=== PATIENT | female | born 1965 | race Caucasian/White ===

== ENCOUNTER → 2025-01-23 07:29 | Outpatient (REF) | payer BC, SELFPAY ==
[2025-01-23 08:25] LABS: Hematocrit 35.9 % (37.0-47.0); Hemoglobin 10.9 g/dL (12.0-16.0); Mean Corp Hgb Conc. 30.4 g/dL (33.0-37.0); Mean Corpuscular Hgb 19.5 pg (27.0-31.0); Mean Corpuscular Volume 64.2 fL (81.0-99.0); Mean Platelet Volume 10.6 fL (7.4-10.4); Platelet Count 224 10^3/uL (130-400); Red Blood Cell Count 5.59 10^6/uL (4.20-5.40); Red Cell Dist. Width 16.3 % (11.5-14.5); White Blood Cell Count 2.7 10^3/uL (4.8-10.8)
[2025-01-23 09:11] LABS: ALT (SGPT) 32 U/L (0-35); AST (SGOT) 36 U/L (14-36); Albumin 4.9 g/dl (3.5-5.0); Alkaline Phosphatase 54 U/L (38-126); Blood Urea Nitrogen 15 mg/dl (7-17); C-Reactive Protein < 5.00 mg/L (0.0-10.00); Calcium 9.7 mg/dl (8.4-10.2); Carbon Dioxide 27 mmol/L (22-30); Chloride 106 mmol/L (98-107); Glucose 74 mg/dl (70-99); Potassium 4.2 mmol/L (3.5-5.1); Sodium 142 mmol/L (135-145); Total Bilirubin 1.7 mg/dl (0.2-1.3); eGFR > 60.00
[2025-01-23 14:03] LABS: % Basophils 1.9 % (0-2); % Eosinophils 11.7 % (0-6); % Lymphocytes 33.6 % (20.5-51.1); % Monocytes 15.5 % (1.7-9.3); % Neutrophils 37.3 % (42.2-75.2); Absolute Basophils 0.1 10^3/uL (0-0.2); Absolute Eosinophils 0.3 10^3/uL (0-0.7); Absolute Lymphocytes 0.9 10^3/uL (1.2-3.4); Absolute Monocytes 0.4 10^3/uL (0.1-0.6); Nucleated Red Blood Cells % 0 %
== END ==
LOC: REG 07:29
PROVIDERS: ATTENDING PHYSICIAN Internal Medicine Rheumatology; FAMILY PHYSICIAN Physician Assistant
DX: M06.09 Rheumatoid arthritis without rheumatoid factor, multiple sites (principal)
CPT/HCPCS: 36415; 80053; 85025; 86140

== ENCOUNTER 2025-03-07 08:37 | Inpatient (IN) | payer BC, SELFPAY ==
[2025-03-07] VITALS (19 sets, daily range): BP systolic 74–138; BP diastolic 42–77
--- NOTE | 2025-03-07 05:13 | ED.GENMED ---
History of Present Illness
General
Chief Complaint: Abdominal Pain
Source: patient
Time Seen by Provider: 03/07/25 05:02
History of Present Illness
History of Present Illness:
This patient is a 60-year-old female presents emergency department with complaints of pain in the epigastric area that started approximately 1 AM and continues. The pain is constant, but then sometimes will unpredictably get worse. She denies
associated lower abdominal pain, chest pain, back pain. She says it 'comes in waves'. She took a PPI and Pepto without relief of symptoms. She denies dyspnea or vomiting but does have mild nausea. She denies fever, chills. She was perfectly
well before this started and describes a day where she was in the pool with her grandchildren.
Past History
Past History
ED Past Medical History: Other (RA, thalassemia minor, hypertension)
ED Past Surgical History: Appendectomy, Gynecological and Orthopedic
Social History
Tobacco: Non-smoker
Drug: None
Personal:
Living: with family
Employment: Employed
Phy Exam
Physical Exam
Physical Exam:
GENERAL: Alert , appears mildly uncomfortable
EYE: pupils equal and reactive
NECK: Supple, no significant adenopathy.
ENT: o/p clr, mmm.
CARDIAC: Regular rate and rhythm .
LUNGS: Clear breath sounds bilaterally, no acute respiratory distress, no wheezes/rales/rhonchi
ABDOMEN: Soft, diffuse abdominal tenderness, no r/g, no cvat
NEUROLOGICAL: Alert and oriented, no focal neuro deficits
SKIN: Warm and dry, skin intact.
MUSCULOSKELETAL: No edema, well perfused.
PSYCH: Normal and appropriate interaction.
Course
Orders/Labs/Results
Orders:
Orders
03/07/25 04:58
Electrocardiogram (*1) Urgent
Reason for Study: Chest Pain
Cardiac Monitoring- Treatment ONCE
EKG- Treatment ONCE
IV Insert/Care/Rem.- Treatment PRN
Pulse Ox/spot Check [RESP] Stat
Quantity: 1
03/07/25 05:02
Complete Blood Count/With Diff Urgent
Comprehensive Metabolic Panel Urgent
Lactate Level [Lactic Acid] Urgent
Lipase Urgent
Troponin I Urgent
03/07/25 05:10
Type And Crossmatch [Type+Screen] Urgent
03/07/25 05:12
Chest/Abd Angio w/wo Contrast CT [CT Chest/abd Angio W/wo Iv Con] Urgent
Comment:
Reason For Exam: EPIGASTRIC PAIN
03/07/25 06:04
0.9% Sodium Chloride 1000 ml [Nss] 1,000 ml IV BOLUS
Morphine Sulfate 4 mg IV NOW STA
03/07/25 06:35
0.9% Sodium Chloride 500 ml [Nss] 500 ml IV BOLUS
HYDROmorphone [Dilaudid] 0.5 mg IV NOW STA
03/07/25 07:28
ABO2 Urgent
BBK Wristband Number:
Associate notified that ABO2 has been ordered: [id number]
Date: 03/07/25
Time: 05:30
Stores Naval ID: [id number]
03/07/25 08:11
Morphine Sulfate 4 mg IV NOW STA
03/07/25 08:13
Admit/Transfer Patient As Directed
Co-Sign Provider:
Level of Care: Inpatient admission
Assign to:: Medical/Surgical
Physician / Group: Rome Blanco
Diagnosis: Abd pain, SB inflammation
Reason for Hospitalization: Abd pain, SB inflammation
Expected length of stay greater than two midnights?: Yes
ELOS- Estimated Length of Stay in days: 3
I certify the patient meets the requirements for IP care: Yes
PRN Pain Medication Management As Directed
May give lesser potent ordered pain med per pt: Yes
preference::
Protocol:: Medication orders for pain may be administered in a
manner that supports deferring to patient preference
when the pt is:
- Requesting an ordered lesser potent pain medication.
Least to most potent pain medications are defined
as: acetaminophen < NSAID < tramadol < opioids
(morphine, oxycodone, hydromorphone).
- Requesting a lesser dose of the same medication IF
ORDERED.
- Requesting a less intrusive route of administration
if both routes are prescribed by the provider (PO <
IV).
03/07/25 08:15
Code Status As Directed
Resuscitation Status: Full Code
03/07/25 08:18
HYDROmorphone [Dilaudid] 0.5 mg IV NOW STA
03/07/25 09:34
0.9% Sodium Chloride 1000 ml [Nss] 1,000 ml IV 100 mls/hr
Acetaminophen [Tylenol] 650 mg PO Q4HPRN PRN
Bisacodyl [Dulcolax] 10 mg RECTAL [id number] PRN
Docusate W/Senna [Senokot-S] 1 tablet PO BIDPRN PRN
HYDROmorphone [Dilaudid] 0.5 mg IV Q4HPRN PRN
Ondansetron Injectable [Zofran] 4 mg IV Q6HPRN PRN
Oxycodone [Roxicodone] 5 mg PO Q4HPRN PRN
Polyethylene Glycol Powder [Miralax] 17 grams PO DAILYPRN PRN
03/07/25 09:34
Activity As Directed
Activity Level: With Assistance
Vital Signs As Directed
Frequency: Per unit guidelines
DX Deep Vein Thrombosis Video Routine
03/07/25 10:00
Ampicillin/Sulbactam 3 G [Unasyn] 3 gm 0.9% Sodium Chloride 100 ml [Nss] 100 ml IV Q6H
03/07/25 18:00
Enoxaparin Sodium [Lovenox] 40 mg SC QPM
03/08/25 08:31
Basic Metabolic Panel IN AM
Complete Blood Count/No Diff IN AM
Abnormal Lab Results
03/07/25
05:02
Hgb 10.4 L g/dL
(12.0-16.0)
Hct 32.7 L %
(37.0-47.0)
MCV 63.0 L fL
(81.0-99.0)
MCH 20.0 L pg
(27.0-31.0)
MCHC 31.8 L g/dL
(33.0-37.0)
RDW 16.0 H %
(11.5-14.5)
Absolute Lymphs (auto) 0.6 L 10^3/uL
(1.2-3.4)
Immature Gran % 0.6 H %
(0-0.5)
Neutrophils % 79.0 H %
(42.2-75.2)
Lymphocytes % 8.6 L %
(20.5-51.1)
Chloride 110 H mmol/L
(98-107)
BUN 24 H mg/dl
(7-17)
Glucose 138 H mg/dl
(70-99)
Total Bilirubin 2.9 H mg/dl
(0.2-1.3)
03/07/25 05:02
03/07/25 05:02
Vital Signs
Initial and Last Documented VS:
Initial Vital Signs
Temp Pulse Resp BP Pulse Ox
97.3 F 68 24 77/42 100
03/07/25 04:28 03/07/25 04:28 03/07/25 04:28 03/07/25 04:28 03/07/25 04:28
Last Documented Vital Signs
Temp Pulse Resp BP Pulse Ox
97.4 F 61 18 155/78 96
03/08/25 15:04 03/08/25 15:04 03/08/25 15:04 03/08/25 15:04 03/08/25 15:04
*Critical Care Note
Total Time (30-74mins, 75-104mins- exclusive of procedures): Not Applicable
Update Note
Update Note:
Patient presents to the Emergency Department with __abdominal pain
Number and Complexity of Problems Addressed at the Encounter
� Chronic conditions affecting care:
� Acute Exacerbation and/or Progression of Chronic Illness:
� Differential Diagnosis includes: But not limited to bowel/gastric perforation, aortic dissection, cholecystitis, etc. etc.
Amount and/or Complexity of Data to be Reviewed and Analyzed
� I performed an independent evaluation of and my interpretation is:
EKG:
CT: Read by vision no aortic dissection or aneurysm, no PE, mild cardiomegaly no pneumothorax or pleural effusion patchy opacities could reflect edema or infection nonspecific prevascular lymph node no cholecystitis pancreatitis
hepatic steatosis spleen mildly enlarged adrenal glands normal no obstructing renal stone inflamed and slightly day loops of small bowel in the left hemiabdomen suspicious for obstruction or ileus correlate with lack dated serial abdominal exams to
assess for ischemia
Xrays:
Laboratory Studies:anemia baseline, mild prerenal azotemia, nonspecific hyperbilirubinemia normal lipase, normal lactic acid
Other:
� Review of other/old records reveals:
� Clinical information was obtained by an independent historian:
� Prescriptions/Medications Considered but not given:
� Further testing considered but not performed:
Risk of Complications and/or Morbidity or Mortality of Patient Management
� Social determinants of health affecting care:
� Discussion with other providers (PCP, Hospitalists, Consultants, etc):
� Escalation of care including admission/observation vs risk of discharge considered: Patient noted to be hypotensive, IVs promptly placed, fluid resuscitation started.
Multiple reassessments of patient. She has been updated on her testing. Incidentally, she does report that she recently increased her Zepbound dosing as of , this could be contributing to her symptoms. At this time, I think ischemic bowel
is extremely unlikely given normal lactic acid, findings that are more likely to be consistent with ileus obstruction, etc. Blood pressure has improved we will continue to monitor closely, IV fluids running.
719am bp stable. Case d/w hospitalist for admission via tt.
ED Attending Note
-
Portions of this chart may have been created with voice recognition software.� Occasional wrong word or��sound alike� substitutions may have occurred due to the inherent limitations of voice recognition software.
Discharge Plan
Departure
Patient Disposition: Admit
Date of Disposition: 03/07/25
Time of Disposition: 07:19
Admit to: Telemetry
Presentation/result/management discussed w/ accepting MD/DO: Hospitalist
Condition: Fair
Discharge Problem:
Abdominal pain
Interventions
Interventions:
*General Assessment Last Done: 03/07/25 05:05
*Neglect/Abuse Screening Last Done: 03/07/25 04:28
*ED- Fall Risk Assessment Last Done: 03/07/25 05:11
*Nursing Disposition Last Done: 03/07/25 09:37
CL-Mhlvks-Cquzaclfmt Assessment Last Done: 03/07/25 05:47
Discharge Date and Time
Discharge Date/Time: 03/07/25 09:38
[2025-03-07 05:24] LABS: ALT (SGPT) 25 U/L (0-35); AST (SGOT) 28 U/L (14-36); Albumin 4.8 g/dl (3.5-5.0); Alkaline Phosphatase 39 U/L (38-126); Blood Urea Nitrogen 24 mg/dl (7-17); Calcium 9.7 mg/dl (8.4-10.2); Carbon Dioxide 25 mmol/L (22-30); Chloride 110 mmol/L (98-107); Glucose 138 mg/dl (70-99); Lipase 70 U/L (23-300); Sodium 143 mmol/L (135-145); Total Bilirubin 2.9 mg/dl (0.2-1.3); Total Protein 7.2 g/dl (6.3-8.2); eGFR > 60.00
[2025-03-07 05:29] LABS: Lactic Acid 1.9 mmol/L (0.7-2.0)
[2025-03-07] MEDS: NSS 1000 IV ×3 (05:30→21:20)
[2025-03-07 05:37] LABS: % Basophils 1.2 % (0-2); % Eosinophils 4.8 % (0-6); % Immature Granulocytes 0.6 % (0-0.5); % Lymphocytes 8.6 % (20.5-51.1); % Monocytes 5.8 % (1.7-9.3); Absolute Basophils 0.1 10^3/uL (0-0.2); Absolute Eosinophils 0.3 10^3/uL (0-0.7); Absolute Lymphocytes 0.6 10^3/uL (1.2-3.4); Absolute Monocytes 0.4 10^3/uL (0.1-0.6); Absolute Neutrophils 5.3 10^3/uL (1.4-6.5); Hematocrit 32.7 % (37.0-47.0); Hemoglobin 10.4 g/dL (12.0-16.0); Mean Corp Hgb Conc. 31.8 g/dL (33.0-37.0); Nucleated Red Blood Cells % 0 %; Platelet Count 207 10^3/uL (130-400); Red Blood Cell Count 5.19 10^6/uL (4.20-5.40); White Blood Cell Count 6.7 10^3/uL (4.8-10.8)
[2025-03-07 05:43] LABS: Troponin I 0.013 ng/ml
[2025-03-07] MEDS: MORPHINE SULFATE 4 MG IV (06:18)
[2025-03-07] MEDS: NSS 500 IV (06:39)
[2025-03-07] MEDS: DILAUDID 0.5 MG IV ×4 (06:40→21:21)
--- NOTE | 2025-03-07 08:40 | HPS.HSE ---
Family Physician
-
Family Physician: Sherrie Tamez PA-C
Chief Complaint
-
Abdominal pain
History of Present Illness
Patient is 60-year-old female with past medical history of depression/anxiety, rheumatoid arthritis on Plaquenil, cervical degenerative joint disease and neuropathy, essential hypertension, obesity came to ER with acute onset of left flank and
epigastric pain that started in the night all of a sudden. Pain is somewhat constant in nature and comes in waves. Unable to specify if there is any radiation, no associated diarrhea/nausea/vomiting/fever episode. Patient denies of having any
previous episodes of such similar pain/peptic ulcer disease/gastritis/pancreatitis. Patient still remain in discomfort and Dilaudid has taken some edge off. Patient denies any other associated issues of chest pain/shortness of breath/productive
cough/headache/dizziness.
Medical History
Past Medical History
Past Medical History: Reports Other
Additional Past Medical History:
depression/anxiety, rheumatoid arthritis on Plaquenil, cervical degenerative joint disease and neuropathy, essential hypertension, obesity
Past Surgical History: Reports Other
Social History
Tobacco: Non-smoker
Alcohol: Occasional
Drug: None
Living: With Family
Family History
Family History: Not pertinent
Allergies / Home Medications
Allergies reflects when Allergies were last updated in [employer].
Home Medications with original date entered in [employer]
Allergy/Medication List:
Allergies
Allergy/AdvReac Type Severity Reaction Status Date / Time
latex [Latex] Allergy Unknown Verified 03/07/25 04:32
Home Medications
amitriptyline 50 mg tablet 50 mg PO HS 08/10/08
calcium 600 mg (as carbonate)-vitamin D3 5 mcg (200 unit) tablet 1 tab PO DAILY 08/10/08
diazepam 10 mg tablet (Valium) 10 mg PO TID PRN spasms 08/10/08
duloxetine 60 mg capsule,delayed release 60 mg PO HS 08/10/08
morphine 60 mg capsule,extended release 24 hr multiphase (Avinza) 60 mg PO DAILY 08/10/08
oxycodone 5 mg tablet 10 mg PO PRN pain 08/10/08
pregabalin 150 mg capsule (Lyrica) 150 mg PO TID 08/10/08
valsartan 80 mg-hydrochlorothiazide 12.5 mg tablet (Diovan HCT) 1 tab PO DAILY 08/10/08
Review of Systems
-
A 12 point ROS was completed and negative except as noted: Yes
Physical Exam
Vital Signs
Vital Signs
Temp Pulse Resp BP Pulse Ox
97.3 F 69 18 104/51 96
03/07/25 04:28 03/07/25 07:15 03/07/25 06:15 03/07/25 07:15 03/07/25 07:15
Physical Exam
General: No Apparent Distress
HEENT: No Oxygen
Respiratory: Clear
Cardiac: S1/S2 and Regular Rhythm; No Murmur or Rub
GI: Soft, Non Distended, Normal Bowel Sounds and Tender (LUQ/Left flank); No Organomegaly
Rectal: Deferred by Provider
Musculoskeletal: No Clubbing, No Cyanosis and No Edema
Skin: No Rash
Neuro: Nonfocal/grossly intact
Laboratory Results
-
03/07/25 05:02
03/07/25 05:02
Laboratory Results
Lactic Acid 1.9 mmol/L (0.7-2.0) 03/07/25 05:02
Total Bilirubin 2.9 mg/dl (0.2-1.3) H 03/07/25 05:02
AST 28 U/L (14-36) 03/07/25 05:02
ALT 25 U/L (0-35) 03/07/25 05:02
Alkaline Phosphatase 39 U/L (38-126) 03/07/25 05:02
Troponin I 0.013 ng/ml 05/18/25 05:02
Lipase 70 U/L (23-300) 03/07/25 05:02
Impression/Plan
-
CT abdomen pelvis preliminary report by night ad hoc Radiologist:
CTA chest: No definitive aortic dissection or aneurysm. No pulmonary embolism. Mild cardiomegaly. Dependent atelectasis. No pneumothorax or pleural effusion. Patchy opacities could reflect edema or reflection. Nonspecific prevascular lymph
node on series 504, image 113 measuring 2.4 x 1.5 cm without recent imaging for comparison
CT abdomen: No aortic dissection or aneurysm no cholecystitis or pancreatitis. Hepatic steatosis. Spleen mildly enlarged. Adrenal glands normal. No obstructing renal stone. Inflamed and slightly dilated loops of small bowel in the left
hemiabdomen suspicious for obstruction or ileus.
1. Intractable abdominal pain
Small bowel inflammation
- Patient have acute onset of left epigastric abdominal pain without any associated nausea/vomiting/diarrhea/fever
- Denies previous history of peptic ulcer disease/pancreatitis/gastritis
- Significant tenderness on exam
- No WBC/lipase negative
- CT abdomen pelvis showing small segment of small bowel inflammation.
- Will have general surgery follow, clinically not behaving ileus or obstruction
- Bowel ischemia remains in differential. Lactic acid first check was normal, check every 8 hour for any increase
- Maintain on clear liquid diet/IV fluid
- Cover with empiric IV Unasyn
2. Rheumatoid arthritis
- Patient takes Plaquenil 200 mg at night, will hold for 24-48 hrs till infection concern cleared
3. Degenerative joint disease of spine
Cervical neuropathy
- Maintain gabapentin 300 mg at night
- Patient also take Zanaflex 2 mg as needed, but blood pressure soft unable to provide
4. Essential hypertension
Hypotension
- Hold valsartan for time being as patient cerebral pressure in 100s only
DVT PPX - lovenox
Full code
Full med reconciliation is pending
[2025-03-07] MEDS: UNASYN IV ×3 (10:19→21:20)
[2025-03-07] MEDS: NSS (PRESERVATIVE FREE) 10 ML IV (11:00)
[2025-03-07] MEDS: PROTONIX IV 40 MG IV (11:00)
--- NOTE | 2025-03-07 15:00 | CON.GS ---
Addendum entered and electronically signed by Michael Nelson MD 03/07/25 15:36:
Patient seen and examined.
Patient is a 60 yo F with a PMH RA (on Kevzara and HCQ), HTN, thalassemia, , endometriosis with multiple laparoscopies and eventual JENNIFER/BSO, obesity on Zepbound for weight loss with dosage increased on from 2.5 mg to 5 mg weekly
who presents with abdominal pain predominantly to the epigastrium with mild nausea which began around 1 am. She passed a normal BM yesterday but no stools today. She has been passing flatus. She reports some mild nausea earlier but no vomiting.
Generalized abdominal tenderness on exam which is worse to the epigastrium without distention. Recent trial of Mobic for 2 weeks, but stopped 1 week ago. No steroids. She previously was on a PPI for GERD, but does not take anything consistently.
Gen: NAD
Abd: soft, tender predominantly in epigastrium, mild in LUQ, ND, non-peritoneal
Labs and CT scan were reviewed
Ms. Hall is a 60 yo F with a h/o RA and obesity on Zepbound who presents with epigastric and LUQ abdominal pain.
Uncertain exact cause for symptoms. Differential includes gastritis or ulcer disease versus medication complication from Zepbound, less likely an adhesive SBO. No plans or indication for surgical intervention at this time. Recommend medical
management with bowel rest, antibiotics, and antacid therapy. If symptoms do not improve would repeat CT scan imaging of the abdomen and pelvis with PO contrast and consider engaging GI for possible EGD. All questions answered.
--OK for clear liquids
--If no symptomatic improvement in the next 24 hours, would repeat CT scan imaging with PO contrast and consider GI consult
--On Unasyn empirically to prevent translocation
--Analgesics/antiemetics prn
--Management as per primary team. No plans for surgery.
--Will follow peripherally, call with questions or concerns
Original Note:
Consultation
-
Date/Time Consultation Performed: 03/07/25 3857
Medical History
-
Chief Complaint: abdominal pain
History of Present Illness:
Ms Hall is a 60 yo female with a h/o RA on Kevzara and HCQ, HTN, thalassemia, , endometriosis with multiple laparoscopies and eventual JENNIFER/BSO, obesity on Zepbound for weight loss with dosage increased on from 2.5mg to 5mg
weekly who presents with abdominal pain predominantly to the epigastrium with mild nausea which began around 1 am. She passed a normal BM yesterday but no stools today. She has been passing flatus. She reports some mild nausea earlier but no
vomiting. Generalized abdominal tenderness on exam which is worse to the epigastrium without distention.
Past Medical History
Past Medical History: GERD (recent tx with omeprazole), HTN, Valvular Disease (MV prolapse) and Other (RA on kevzara and hcq and recent course of meloxicam, thalassemia minor, obesity on zepbound)
Past Surgical History: Appendectomy, , Gynecological (multiple laparoscopic procedures for endometriosis with eventual hysterectomy/BSO) and Orthopedic (t8 discectomy )
Social History
Tobacco: Non-Smoker
Alcohol: Occasional
Living: With Family
Employment: Employed ([employer])
Family History
Family History: Reviewed & Not Pertinent
Allergies / Home Medications
Allergy/AdvReac Type Severity Reaction Status Date / Time
latex [Latex] Allergy Unknown Verified 03/07/25 04:32
�Medication �Instructions �Recorded �Confirmed �Type
amitriptyline 50 mg tablet 50 mg PO HS 08/10/08 08/10/08 History
calcium 600 mg (as 1 tab PO DAILY 08/10/08 08/10/08 History
carbonate)-vitamin D3 5 mcg (200
unit) tablet
diazepam 10 mg tablet (Valium) 10 mg PO TID PRN spasms 08/10/08 08/10/08 History
duloxetine 60 mg capsule,delayed 60 mg PO HS 08/10/08 08/10/08 History
release
morphine 60 mg capsule,extended 60 mg PO DAILY 08/10/08 08/10/08 History
release 24 hr multiphase (Avinza)
oxycodone 5 mg tablet 10 mg PO PRN pain 08/10/08 08/10/08 History
pregabalin 150 mg capsule (Lyrica) 150 mg PO TID 08/10/08 08/10/08 History
valsartan 80 1 tab PO DAILY 08/10/08 08/10/08 History
mg-hydrochlorothiazide 12.5 mg
tablet (Diovan HCT)
Review of Systems
-
History Source: Patient
All other systems: Negative unless noted
A 10 point review of systems was completed, and was negative except as per HPI.
Physical Exam
Vital Signs
Temp Pulse Resp BP Pulse Ox
98.2 F 66 18 138/77 99
03/07/25 09:40 03/07/25 09:40 03/07/25 09:40 03/07/25 09:40 03/07/25 09:40
03/06/25 03/07/25 03/08/25
06:59 06:59 06:59
Actual Weight 73 kg 73.074 kg
Lab Results
03/07/25 05:02
03/07/25 05:02
WBC 6.7 10^3/uL (4.8-10.8) 03/07/25 05:02
Hgb 10.4 g/dL (12.0-16.0) L 03/07/25 05:02
Hct 32.7 % (37.0-47.0) L 03/07/25 05:02
Plt Count 207 10^3/uL (130-400) 03/07/25 05:02
Abs Immat Gran (auto) 0.0 10^3/uL (0-0.05) 03/07/25 05:02
Neutrophils % 79.0 % (42.2-75.2) H 03/07/25 05:02
Physical Exam
General: Well Developed and Well Nourished
HEENT: Moist Mucous Membranes
Respiratory: Non Labored Respirations
GI: Soft, Non Distended and Tender (throughout but more focally tender to the epigastrium)
Skin: Warm and Dry
Neuro: Awake, Alert and AO x 3
Psych: Calm
Data Reviewed
-
CT Scan: Image Personally Visualized and interpreted, Report Reviewed by me, Discussed with Physician and Discussed with Patient
Labs: Labs Reviewed by me, Discussed with Physician and Discussed with Patient
Old Records: Reviewed
Assessment / Plan
-
Ms Hall is a 60 yo female with a h/o RA on Kevzara and hcq, HTN, thalassemia minor, , endometriosis with multiple laparoscopies and eventual JENNIFER/BSO, obesity on Zepbound for weight loss with dosage increased on from 2.5mg to 5mg
weekly who presents with abdominal pain predominantly to the epigastrium with mild nausea which began around 1 am. CTA reviewed and demonstrating mildly dilated loops of proximal small bowel with thickening. Unclear if symptoms related to recent
increase in Zepbound dosing vs gastroenteritis/PUD, less likely an adhesive sbo. She has been passing flatus but no BM today. Minimal nausea. No leukocytosis. Afebrile, VSS.
--Ok for clear liquids
--If no symptomatic improvement in the next 24 hours, consider GI consult
--On Unasyn empirically to prevent translocation
--Analgesics/antiemetics prn
--Management as per primary team. No plans for surgery.
[2025-03-07 16:04] LABS: Lactic Acid 0.8 mmol/L (0.7-2.0)
[2025-03-07] MEDS: LOVENOX 40 MG SC (17:16)
[2025-03-08] MEDS: UNASYN IV ×2 (04:24→09:12)
[2025-03-08] MEDS: NSS 1000 IV (06:35)
[2025-03-08 07:24] VITALS: BP 130/69
[2025-03-08] MEDS: PROTONIX IV 40 MG IV (08:00)
[2025-03-08] MEDS: NSS (PRESERVATIVE FREE) 10 ML IV (08:00)
--- NOTE | 2025-03-08 08:42 | W.PN.HOSP.TC ---
Addendum entered and electronically signed by Joesph Petersen MD 03/08/25 18:49:
Ok to d/c as long as tolerates diet.
Original Note:
Today's Communication/Plan
-
CLD. PPI. GI eval
Assessment / Plan
Assessment / Plan
Physical exam:
General: Well Developed, Well Nourished and some apparent Distress
HEENT: Normocephalic, Atraumatic and Moist Mucous Membranes
Respiratory: Clear to Auscultation; Negative Wheezes, Rales or Rhonchi
Cardiac: Regular Rhythm and S1/S2
GI: Soft, tender and Nondistended
Musculoskeletal: No Clubbing, No Cyanosis and No Edema
Neuro: Awake, Alert and Oriented, no neurological deficit
Psych: Calm
A/P:
1. Abdominal pain
Suspect etiology could be related to Zepbound versus PUD/gastritis in the setting of NSAID use recently vs enterocolitis
Continue PPI
Continue clear liquid diet
GI consult-discussed with GI via [place] text today
Appreciate surgery input-no need for surgical intervention
Stop antibiotics today
Stop IV fluids today
2. Rheumatoid arthritis
- Patient takes Plaquenil-resume home medications today
3. Degenerative joint disease of spine
Cervical neuropathy
- Maintain gabapentin 300 mg at night-will resume tonight
- Patient also take Zanaflex 2 mg as needed
4. Essential hypertension-blood pressure much improved today
- Resume valsartan but half the dose 80 mg daily and HCTZ 25 mg daily with holding parameter
5. Hypotension
- Initially HTN meds have been on hold and IV fluids given
DVT PPX - lovenox
Full code
Total time spent on today's encounter was 52 minutes which included time spent in counseling the patient/family regarding diagnosis and treatment plan as listed above, goals of care, and symptom management. Case was discussed with nursing staff,
specialists, and care coordinators/case management. All labs and imaging personally reviewed by me. Remainder the time spent in detailed review of previous records, lab data, imaging, and other medical provider documentation.
Anticipated Discharge: 24 - 48 hours
Subjective/Interval History
-
Date of Service: March 08, 2025
Patient complains of abdominal pain today after having clear liquid diet. No vomiting. Afebrile
Objective Data
-
Labs:
Laboratory Results
03/08/25
08:31
WBC Pending
Hgb Pending
Hct Pending
Plt Count Pending
Sodium Pending
Potassium Pending
Chloride Pending
Carbon Dioxide Pending
BUN Pending
Creatinine Pending
Glucose Pending
Calcium Pending
Vital Signs:
Vital Signs
Temp Pulse Resp BP Pulse Ox
98.0 F 58 18 130/69 98
03/08/25 07:24 03/08/25 07:24 03/08/25 07:24 03/08/25 07:24 03/08/25 07:24
I&O
03/07/25 03/08/25 03/09/25
06:59 06:59 06:59
Intake Total 3200 / 3200
Balance 3200 / 3200
[2025-03-08 08:55] LABS: Hematocrit 34.1 % (37.0-47.0); Hemoglobin 10.6 g/dL (12.0-16.0); Mean Corp Hgb Conc. 31.1 g/dL (33.0-37.0); Mean Corpuscular Hgb 20.1 pg (27.0-31.0); Mean Corpuscular Volume 64.6 fL (81.0-99.0); Platelet Count 190 10^3/uL (130-400); Red Blood Cell Count 5.28 10^6/uL (4.20-5.40); Red Cell Dist. Width 16.5 % (11.5-14.5); White Blood Cell Count 2.7 10^3/uL (4.8-10.8)
[2025-03-08 09:01] LABS: Blood Urea Nitrogen 10 mg/dl (7-17); Calcium 8.9 mg/dl (8.4-10.2); Carbon Dioxide 23 mmol/L (22-30); Chloride 116 mmol/L (98-107); Glucose 84 mg/dl (70-99); Sodium 145 mmol/L (135-145); eGFR > 60.00
[2025-03-08] MEDS: DILAUDID 0.5 MG IV (09:09)
[2025-03-08] MEDS: ORETIC 25 MG PO (12:37)
[2025-03-08] MEDS: DIOVAN 80 MG PO (12:38)
[2025-03-08] MEDS: PLAQUENIL 400 MG PO (12:38)
--- NOTE | 2025-03-08 14:57 | CM ---
seo manager reviewed patient's chart and met with patient and patient lives with spouse in a 2 story home, patient is independent with adl's and ambulation, no dme, patient drives, home when stable, no needs.
PCP: Sherrie Fry
Pharmacy: [facility] in [place].
[2025-03-08 15:04] VITALS: BP 155/78
--- NOTE | 2025-03-08 16:11 | CON.GI ---
Addendum entered and electronically signed by Angel Lopez MD 03/08/25 18:27:
I saw and examined the patient.
The PA's note was reviewed and I agree with the note.
Comment:
60-year-old female with h/o RA, HTN, obesity on Zepbound, and fatty liver who presents with sudden onset of severe epigastric abdominal pain. She recently had her GLP-1 agonist (Zepbound) dose increased from 2.5 mg to 5 mg, last taken on 03/04. She
took Mobic daily for about 2 weeks but stopped about a week ago. No prior EGD. Denies vomiting, melena. Since admission her pain has improved and tolerated CLD. Patient wishes to go home. Her Hgb is at baseline. Ok to advance diet to solids,
if she tolerates, can d/c home with GI f/u as OP.
Original Note:
Consultation
-
Date/Time Consultation Requested: 03/08/25 1127
Date/Time Consultation Performed: 03/08/25 1610
Requesting Provider: Dr. Petersen
Performing Provider: Dr. Lopez / Reanna Caruso PA-C
Reason for Consultation: epigastric pain
Medical History
Chief Complaint / HPI
Chief Complaint: epigastric pain
History of Present Illness:
This is a 60 year old female with a past medical history of rheumatoid arthritis (on Kevzara abnd Plaquenil), HTN, obesity (on Zepbound), thalassemia, fatty liver, depression and anxiety who presented to the ER yesterday with sudden onset of severe
epigastric pain that woke her from sleep in the middle of the night. She states the day before she had felt completely fine. +mild associated nausea. No vomiting, fever, chills, diarrhea or constipation. She does note that her dose of Zepbound had
been very recently increased (from 2.5mg to 5mg) last week (, 03/04). The pain was described as sharp, constant with radiation into her upper back. She also notes she had recently been on a PPI trial for suspected silent reflux as she had a
persistent cough for 4 months in the winter. A 4-week trial of omeprazole did work well; she states the cough resolved. She denies symptoms of heartburn, reflux/regurgitation or belching. She does note dysphagia and a globus sensation (stating 'it
feels like something is there' pointing to the throat) which has been an intermittent, non-progressive symptom for the past 6-8 months. She has never had an endoscopy. Patient also notes that about 3 weeks ago, she had taken a 2-week course of
meloxicam for her arthritis pain. No other NSAID use. She drinks alcohol socially, about 4-5 drinks/week. No other new medications, no recent dietary changes. She did lose about 20 pounds since starting the Zepbound. Patient denies a history of
pancreatitis.
Labs in the ER reviewed; CBC showed no leukocytosis; LFTs as follows with elevated total bilirubin of 2.9, normal AST/ALT (28/25) and alk phos (39). She does have a known history of fatty liver, and states she has had elevated LFTs (notably
bilirubin) in the past, which was attributed to her RA med Kevzara. Lipase was normal (70). Imaging studies included a CTA chest/abdomen which showed fatty liver, splenomegaly, as well as mildly dilated small bowel loops in the upper abdomen. No
abnormal dilation of the stomach noted. Ileus, enteritis and early SBO noted to be considerations per radiology report. Surgery was consulted and deemed no need for surgical intervention. Patient is passing gas normally and has had daily, formed
bowel movements since being admitted. No melena or hematochezia.
Past Medical History
Past Medical History: Other (rheumatoid arthritis (on Kevzara abnd Plaquenil), HTN, obesity (on Zepbound), thalassemia, fatty liver, depression and anxiety)
Past Surgical History: Other (Appendectomy, , Gynecological (multiple laparoscopic procedures for endometriosis with eventual hysterectomy/BSO) and Orthopedic (t8 discectomy ))
Social History
Tobacco: Former Smoker (quit >30 yrs ago)
Alcohol: Occasional (4-5 drinks/week)
Drug: None
Personal:
Living: With Family
Employment: Employed
Family History
Family History: Other (no family history of GI malignancies)
Allergies / Home Medications
Allergy/AdvReac Type Severity Reaction Status Date / Time
latex [Latex] Allergy Unknown Verified 03/07/25 04:32
�Medication �Instructions �Recorded
alendronate 70 mg tablet (Fosamax) 70 mg PO QWEEK BONE HEALTH 03/07/25
cholecalciferol (vitamin D3) 25 25 mcg PO DAILY Supplement 03/07/25
mcg (1,000 unit) tablet (Vitamin
D3)
hydrochlorothiazide 25 mg tablet 25 mg PO DAILY Fluid 03/07/25
Retention/Swelling
hydroxychloroquine 200 mg tablet See Rx Instructions .Route 03/07/25
(Plaquenil) .COMPLEX Autoimmune Disorder
hydroxychloroquine 200 mg tablet See Rx Instructions .Route 03/07/25
(Plaquenil) .COMPLEX Autoimmune Disorder
levocetirizine 5 mg tablet (Xyzal) 5 mg PO HS Allergies 03/07/25
sarilumab 200 mg/1.14 mL 200 mg SC Q2W Anti-Inflammatory 03/07/25
subcutaneous pen injector (Kevzara)
tirzepatide (weight loss) 5 mg/0.5 5 mg SC QMONTH Diabetes 03/07/25
mL subcutaneous pen injector
(Zepbound)
valsartan 160 mg tablet 160 mg PO HS Blood Pressure 03/07/25
Review of Systems
-
History Source: Patient
All other systems: A 12 pt ROS was Negative except as stated above in HPI
Vital Signs
Temp Pulse Resp BP Pulse Ox
97.4 F 61 18 155/78 96
03/08/25 15:04 03/08/25 15:04 03/08/25 15:04 03/08/25 15:04 03/08/25 15:04
Physical Exam
Exam
General: Well Developed, Well Nourished, No Apparent Distress and Comfortable
HEENT: Normocephalic
Respiratory: Clear
Cardiac: Regular Rhythm
GI: Soft, Non Distended, Normal Bowel Sounds and Tender
Skin: Warm and Dry
Neuro: AO x 3
Psych: Calm
Results
WBC 2.7 10^3/uL (4.8-10.8) L 03/08/25 08:31
Hgb 10.6 g/dL (12.0-16.0) L 03/08/25 08:31
Hct 34.1 % (37.0-47.0) L 03/08/25 08:
MCV 64.6 fL (81.0-99.0) L 03/08/25 08:31
Plt Count 190 10^3/uL (130-400) 03/08/25 08:31
Absolute Neuts (auto) 5.3 10^3/uL (1.4-6.5) 03/07/25 05:02
Sodium 145 mmol/L (135-145) 03/08/25 08:31
Potassium 4.0 mmol/L (3.5-5.1) 03/08/25 08:31
Chloride 116 mmol/L (98-107) H 03/08/25 08:31
Carbon Dioxide 23 mmol/L (22-30) 03/08/25 08:31
BUN 10 mg/dl (7-17) 03/08/25 08:31
Creatinine 0.8 mg/dL (0.6-1.0) 03/08/25 08:31
Calcium 8.9 mg/dl (8.4-10.2) 03/08/25 08:31
Total Bilirubin 2.9 mg/dl (0.2-1.3) H 03/07/25 05:02
AST 28 U/L (14-36) 03/07/25 05:02
ALT 25 U/L (0-35) 03/07/25 05:02
Alkaline Phosphatase 39 U/L (38-126) 03/07/25 05:02
Lipase 70 U/L (23-300) 03/07/25 05:02
Diagnostic Image Results:
CTA Chest/Abdomen: 03/07/25
1. Negative for aortic dissection. Negative for aortic aneurysm.
2. Mildly dilated small bowel loops in the upper abdomen with some adjacent mesenteric edematous changes. Ileus, enteritis, and early small bowel obstruction are considerations. There is no abnormal dilation of the stomach and there is gas within
the colon.
3. Hypoaerated lungs without consolidation. Elevation left hemidiaphragm.
4. As above, ovoid cystic structure adjacent the ascending aorta measuring up to 2.2 cm in diameter. This was present on CT examinations obtained in 2007, consistent with benign etiology. As described previously, atypical pericardial recess is a
consideration. Other etiologies such as thymic cyst are possible, considered less likely.
5. Hepatic fatty infiltration.
6. Splenomegaly.
Prior GI Procedures:
EGD: never
Colonoscopy: 1-2 yrs ago at [place]; reportedly normal per patient
Assessment / Plan
-
60 yo F with a history of rheumatoid arthritis (on Kevzara and Plaquenil), HTN, obesity (on Zepbound), thalassemia, fatty liver, depression and anxiety who presented to the ER yesterday with sudden onset of severe epigastric pain that woke her from
sleep in the middle of the night. She states the day before she had felt completely fine. +mild associated nausea. No vomiting, fever, chills, diarrhea or constipation. She does note that her dose of Zepbound had been very recently increased (from
2.5mg to 5mg) last week (, 03/04). The pain was described as sharp, constant with radiation into her upper back. She also notes she had recently been on a PPI trial for suspected silent reflux as she had a persistent cough for 4 months in the
winter. A 4-week trial of omeprazole did work well; she states the cough resolved. She denies symptoms of heartburn, reflux/regurgitation or belching. She does note dysphagia and a globus sensation (stating 'it feels like something is there'
pointing to the throat) which has been an intermittent, non-progressive symptom for the past 6-8 months. She has never had an endoscopy. Patient also notes that about 3 weeks ago, she had taken a 2-week course of meloxicam for her arthritis pain. No
other NSAID use. She drinks alcohol socially, about 4-5 drinks/week. No other new medications, no recent dietary changes. She did lose about 20 pounds since starting the Zepbound. Patient denies a history of pancreatitis.
Labs in the ER reviewed; CBC showed no leukocytosis; LFTs as follows with elevated total bilirubin of 2.9, normal AST/ALT (28/25) and alk phos (39). She does have a known history of fatty liver, and states she has had elevated LFTs (notably
bilirubin) in the past, which was attributed to her RA med Nicolas. Lipase was normal (70). Imaging studies included a CTA chest/abdomen which showed fatty liver, splenomegaly, as well as mildly dilated small bowel loops in the upper abdomen. No
abnormal dilation of the stomach noted. Ileus, enteritis and early SBO noted to be considerations per radiology report. Surgery was consulted and deemed no need for surgical intervention. Patient is passing gas normally and has had daily, formed
bowel movements since being admitted. No melena or hematochezia.
Patient states her pain has significantly improved today; was tolerating clear liquid diet today at lunch without abdominal pain or nausea.
IMPRESSION / PLAN:
Epigastric Pain, etiology secondary to gastritis (NSAID-induced) vs Zepbound
- symptoms improving; tolerating clear liquids
- continue PPI
- discontinue Zepbound
- avoid all NSAIDs
- patient does not present clinically as SBO, passing gas and has had multiple bowel movements while admitted
- consider endoscopy - timing to be discussed further with Dr. Lopez - could likely be done outpatient
Fatty liver, elevated LFTs
- pt reports the elevated LFTs had been attributed to her Kevzara and she has a known diagnosis of fatty liver
- outpatient follow-up (repeat LFTs, FibroScan, etc)
Dysphagia/globus sensation
- as noted above, eventual endoscopy for further evaluation
Other medical issues managed as per hospitalist.
-
-
Thank you for consultation and allowing me to participate in the patient's care. Please call the exceptional needs teacher GI physician during the after hours with any questions or concerns.
--- NOTE | 2025-03-08 17:58 | W.DCSUMMARY ---
Discharge Summary
Discharge Data
Date of Admission: 03/07/25
Date of Discharge: 03/08/25
Total time spent discharging patient (in min): 35
-
Pending Results: No
Hospital Course
Patient is 60 years old female history of rheumatoid arthritis on Plaquenil and Kevzara, hypertension, obesity on Zepbound, fatty liver disease, thalassemia, depression anxiety, came into the hospital with abdominal pain and nausea. CT scan showed
evidence of ileus and possible enteritis. Patient initially was kept n.p.o., IV fluids, and empiric antibiotics were initiated. Surgery also was consulted. Surgery felt there was no need for any surgical intervention. I discontinued her
antibiotics and fluids and she tolerated diet without any problems. We did ask GI to see her given the use of NSAIDs recently and also Zepbound. GI recommended to discontinue weight loss medication for now and avoid NSAIDs. We did start her on
PPI and will continue that. Patient improved sooner than anticipated. She was able to tolerate advance of diet and her symptoms have subsided. She would like to go home. GI cleared her for discharge. She can have follow-up outpatient with GI.
She will be discharged in stable condition today.
Discharge duration: 35 minutes
Discharge Plan
-
Patient Disposition: Home (Routine Discharge)
Discharge Diagnosis/Procedures: Abdominal pain. History of rheumatoid arthritis. Elevated liver function test. Hypertension.
Diet: Low Residue
Activity: As tolerated
Blood Work: Please PCP to order CBC, CMP within 1 week
Referrals:
Sherrie Tamez PA-C [Family Provider] - in less than 1 week
Angel Lopez MD [Active] - in two to four weeks
Prescriptions:
New
valsartan 80 mg Tablet
80 mg PO DAILY 30 Days Qty: 30 0RF
pantoprazole [Protonix] 40 mg tablet,delayed release (DR/EC)
40 mg PO DAILY Qty: 30 0RF
Continued
alendronate [Fosamax] 70 mg Tablet
70 mg PO QWEEK
Rx Instructions:
every saturday
hydrochlorothiazide 25 mg Tablet
25 mg PO DAILY
hydroxychloroquine [Plaquenil] 200 mg Tablet
See Rx Instructions .ROUTE .COMPLEX
Rx Instructions:
200 mg orally every other day; 400mg opposite days
hydroxychloroquine [Plaquenil] 200 mg Tablet
See Rx Instructions .ROUTE .COMPLEX
Rx Instructions:
400 mg orally every other day; 200mg opposite days
400mg due 03/08/25
cholecalciferol (vitamin D3) [Vitamin D3] 25 mcg (1,000 unit) Tablet
25 mcg PO DAILY
levocetirizine [Xyzal] 5 mg Tablet
5 mg PO HS
Kevzara 200 mg/1.14 mL Pen Injector
200 mg SC Q2W
Rx Instructions:
on
Discontinued
valsartan 160 mg Tablet
160 mg PO HS
Zepbound 5 mg/0.5 mL Pen Injector
5 mg SC QMONTH
Discharge Orders:
Discharge Patient (As Directed); Ordered 03/08/25
Ordered By: Joesph Petersen
Discharge Date and Time
Discharge Date/Time: 03/08/25 19:32
Print Language: SAMOAN
[2025-03-08] MEDS: LOVENOX SC (18:07)
== END 2025-03-08 19:32 | disposition home or self-care (01) | DRG 392 ==
LOC: 4 WEST ACU 08:37
PROVIDERS: ADMITTING PHYSICIAN Hospitalist; ATTENDING PHYSICIAN Hospitalist; CONSULT PHYSICIAN Internal Medicine Gastroenterology; CONSULT PHYSICIAN Surgery; EMERGENCY PHYSICIAN Emergency Medicine; FAMILY PHYSICIAN Physician Assistant
DX: K29.60 Other gastritis without bleeding (principal); J98.11 Atelectasis; M06.9 Rheumatoid arthritis, unspecified; M47.812 Spondylosis without myelopathy or radiculopathy, cervical region; E11.40 Type 2 diabetes mellitus with diabetic neuropathy, unspecified; I10 Essential (primary) hypertension; I95.9 Hypotension, unspecified; Z87.891 Personal history of nicotine dependence; Z79.899 Other long term (current) drug therapy
CPT/HCPCS: 71275; 74175; 80048; 80053; 83605; 83690; 84484; 85025; 85027; 86850; 86900; 86901; 93005; 96361; 96374; 96375; 99285; Q9967

== ENCOUNTER → 2025-09-21 07:21 | Outpatient (REF) | payer BC, SELFPAY ==
[2025-09-21 08:01] LABS: Hematocrit 36.6 % (37.0-47.0); Hemoglobin 11.2 g/dL (12.0-16.0); Mean Corp Hgb Conc. 30.6 g/dL (33.0-37.0); Mean Corpuscular Volume 64.8 fL (81.0-99.0); Nucleated Red Blood Cells % 0 %; Platelet Count 282 10^3/uL (130-400); Red Cell Dist. Width 17.2 % (11.5-14.5)
[2025-09-21 08:39] LABS: ALT (SGPT) 36 U/L (0-35); AST (SGOT) 39 U/L (14-36); Albumin 4.7 g/dl (3.5-5.0); Alkaline Phosphatase 51 U/L (38-126); Blood Urea Nitrogen 15 mg/dl (7-17); Calcium 9.5 mg/dl (8.4-10.2); Carbon Dioxide 31 mmol/L (22-30); Chloride 103 mmol/L (98-107); Glucose 114 mg/dl (70-99); Potassium 4.2 mmol/L (3.5-5.1); Sodium 139 mmol/L (135-145); Total Protein 7.5 g/dl (6.3-8.2); eGFR > 60.00
[2025-09-21 08:46] LABS: C-Reactive Protein < 5.00 mg/L (0.0-10.00)
== END ==
LOC: REG 07:21
PROVIDERS: ATTENDING PHYSICIAN Internal Medicine Rheumatology; FAMILY PHYSICIAN Physician Assistant
DX: M06.09 Rheumatoid arthritis without rheumatoid factor, multiple sites (principal)
CPT/HCPCS: 36415; 80053; 85025; 86140